=== PATIENT | female | born 1975 | race Caucasian/White ===

== ENCOUNTER 2023-07-12 10:00 | Emergency (ER) | payer MEDICAID ==
[~2023-07-12] VITALS: Ht 152.4 cm; Wt 107.5 kg
[2023-07-12 10:06] VITALS: BP_SYST 140; PULSE 71; RESP 19; TEMP 97; O2SAT 98
[2023-07-12] MEDS ORDERED: KETOROLAC TROMETHAMINE 60 MG/2 ML VIAL IM ONE (10:15)
[2023-07-12] MEDS ORDERED: ONDANSETRON 4 MG ODT TAB PO ONE (10:15)
[2023-07-12 10:57] LABS: BASOPHILS % (AUTO) 0.8 % (0.0-2.0); EOSINOPHILS # (AUTO) 0.1 K/uL (0.0-0.4); EOSINOPHILS % (AUTO) 2.2 % (0.0-4.0); HEMATOCRIT 29.5 % (36-48); HEMOGLOBIN 8.6 g/dL (12.0-16.0); LYMPHOCYTES # (AUTO) 1.4 K/uL (1.0-5.5); LYMPHOCYTES % (AUTO) 25.7 % (20.5-51.5); MEAN CORPUSCULAR HEMOGLOBIN 19 pg (27-31); MEAN CORPUSCULAR HGB CONC 29 % (32-36); MEAN CORPUSCULAR VOLUME 66 fL (79.0-98.0); MONOCYTES # (AUTO) 0.3 K/uL (0.0-1.0); MONOCYTES % (AUTO) 5.3 % (1.7-9.3); NEUTROPHILS # (AUTO) 3.7 K/uL (1.8-7.7); PLATELET COUNT (AUTO) 270 K/uL (130-430); RED BLOOD CELL COUNT(AUTO) 4.47 MIL/uL (4.2-6.2); RED CELL DISTRIBUTION WIDTH 19.3 % (9.0-15.0); WHITE BLOOD COUNT (AUTO) 5.6 K/uL (4.8-10.8)
[2023-07-12 11:14] LABS: ERYTHROCYTE SEDIMENTATION RATE 55 MM/HR (0-20)
[2023-07-12 11:21] LABS: CALCIUM 8.9 mg/dL (8.4-11.0); CREATININE 0.57 mg/dL (0.55-1.30); POTASSIUM 3.7 mmol/L (3.5-5.1)
[2023-07-12 11:35] LABS: ALBUMIN 3.1 g/dL (3.4-4.8); TOTAL BILIRUBIN 0.3 mg/dL (0.0-1.0); TOTAL PROTEIN, SERUM 7.3 g/dL (6.4-8.3)
[2023-07-12] MEDS ORDERED: TRAM50TA2 PO (12:01)
[2023-07-12] MEDS ORDERED: IBUP-1969 PO (12:01)
[2023-07-12 12:33] VITALS: BP_SYST 131; PULSE 84; RESP 19; TEMP 97; O2SAT 98
== END 2023-07-12 12:32 | disposition home or self-care (01) ==
LOC: SED 10:00
DX: R51.9 Headache, unspecified (principal); R11.0 Nausea; Z79.899 Other long term (current) drug therapy
CPT/HCPCS: 99285; 70450; 80053; 85025; 85651; 36415; 76376; 96372; 82397; Q0162; J1885

== ENCOUNTER 2023-12-14 11:57 | Emergency (ER) | payer MEDICAID ==
[~2023-12-14] VITALS: Ht 154.9 cm; Wt 109.3 kg
[~2023-12-14 11:57] MED LIST: IBUP-1969 PO; TRAM50TA2 PO
[2023-12-14 12:10] VITALS: BP_SYST 129; PULSE 87; RESP 15; TEMP 97.2; O2SAT 98
[2023-12-14 14:10] VITALS: BP_SYST 148; PULSE 75; RESP 18; TEMP 98.1; O2SAT 97
== END 2023-12-14 13:52 | disposition home or self-care (01) ==
LOC: SED 11:57
DX: I10 Essential (primary) hypertension (principal); R42 Dizziness and giddiness; R11.2 Nausea with vomiting, unspecified; Z98.890 Other specified postprocedural states
CPT/HCPCS: 99281